=== PATIENT | female | born 1965 | race Hispanic/Latino ===

== ENCOUNTER 2023-06-01 12:56 | Day surgery (SDC) | payer BC ==
[2023-06-01] MEDS ORDERED: Sodium Bicarbonate 2.5 MEQ/5 ML SDV ONE (13:09)
[2023-06-01] MEDS ORDERED: Lidocaine 1% PF 5 ML VIAL ONE (13:09)
[2023-06-01 13:54] VITALS: BP 140/69; TEMP 98.9
[2023-06-01 14:05] LABS: #Eosinphils 0.1 10x3/uL (0.0-0.5); #Monocytes 0.5 10x3/uL (0.0-1.1); #Neutrophils 3.8 10x3/uL (1.5-8.4); %Basophils 0.2 % (0.0-2.0); %Eosinophils 0.8 % (0.0-6.0); %Lymphocytes 33.4 % (18.0-47.0); %Monocytes 7.6 % (0.0-10.0); %Neutrophils 57.5 % (40.0-75.0); Hematocrit 28.1 % (34.9-44.5); Hemoglobin 9.2 g/dL (12.0-15.5); Mean Corpuscular HGB CONC 32.7 g/dL (32.0-36.0); Mean Corpuscular Hemoglobin 36.1 pg (27.0-33.0); Mean Corpuscular Volume 110.2 fl (81.6-98.3); Mean Platelet Volume 11.5 fl (7.4-10.4); Platelet Count 125 10x3/uL (150-450); RBC Distribution Width 16.7 % (11.5-14.5); Red Blood Cell (RBC) Count 2.55 10x6/uL (3.90-5.03); White Blood Cell (WBC) Count 6.6 10x3/uL (3.5-10.5)
[2023-06-01] MEDS ORDERED: FLU VACC QS2023-24(6MOS UP)/PF 60 MCG/0.5 ML SYRINGE IM ONE (14:15)
[2023-06-01 14:22] LABS: PTT 21.7 sec (22.0-33.0)
== END 2023-06-01 15:45 | disposition home or self-care (01) ==
LOC: CSHULT 12:56
PROVIDERS: ATTEND Internal Medicine Hematology & Oncology
PROC: 0W9G3ZZ Drainage of Peritoneal Cavity, Percutaneous Approach (ICD-10-PCS; principal; 2023-06-01)
DX: R18.8 Other ascites (principal); C48.8 Malignant neoplasm of overlapping sites of retroperitoneum and peritoneum; C56.2 Malignant neoplasm of left ovary; Z88.8 Allergy status to other drugs, medicaments and biological substances; Z86.16 Personal history of COVID-19; I25.10 Atherosclerotic heart disease of native coronary artery without angina pectoris; Z95.1 Presence of aortocoronary bypass graft; I50.22 Chronic systolic (congestive) heart failure
CPT/HCPCS: 49083; 85025; 85610; 85730